=== PATIENT | male | born 2000 | race Caucasian/White ===

== ENCOUNTER 2018-08-27 10:09 | Emergency (ER) | payer BC ==
[~2018-08-27] VITALS: Ht 180.3 cm; Wt 113.6 kg
[2018-08-27 10:13] VITALS: BP 173/94; TEMP 98.7
[2018-08-27] MEDS ORDERED: CONCERTA18 MG PO (10:36)
[2018-08-27 11:22] VITALS: PULSE 79
== END 2018-08-27 11:22 | disposition home or self-care (01) ==
LOC: COL.ER 10:09
DX: S06.0X0A Concussion without loss of consciousness, initial encounter (principal); S00.83XA Contusion of other part of head, initial encounter; F90.9 Attention-deficit hyperactivity disorder, unspecified type; Z88.0 Allergy status to penicillin; W22.8XXA Striking against or struck by other objects, initial encounter; Y92.59 Other trade areas as the place of occurrence of the external cause